=== PATIENT | female | born 1950 | race Caucasian/White ===

== ENCOUNTER 2017-09-16 05:46 | Inpatient (IN) | payer MEDICARE, OTHER, SELFPAY ==
[2017-08-30 15:08] VITALS: BP 136/78; PULSE 67; RESP 17; TEMP 37.3; O2SAT 98; BMI 28.0
[2017-08-30 16:08] LABS: Color, Urine Amber (Yellow); Glucose, Dipstick Normal (Normal); Ketone-Dipstick Negative (Negative); Leukocyte Esterase-Dipstick 500 /ul (Negative); Nitrite-Dipstick Positive (Negative); Occult Blood-Urine Negative /ul (Negative); Protein-Dipstick 15 mg/dl (Negative); Specific Gravity, Urine 1.015 (1.002-1.030); Urine Clarity Cloudy (Clear); Urine Urobilinogen 12 mg/dl (Normal); Urine pH 6.5 (5.0 - 8.0)
[2017-08-30 16:14] LABS: Absolute Lymphocyte Count 1.69 X10^3/ul (0.83-4.51); Absolute Neutrophil Count 3.2 X10^3/uL (2.0-7.7); Basophil# 0.02 X10^3/uL; Basophil% 0.3 % (0-1); Eosinophil# 0.12 X10^3/uL; Eosinophils% 2.1 % (0-5); Hematocrit 39.9 % (37-47); Hemoglobin 13.6 g/dl (12.0-15.0); Lymphocyte # 1.69 X10^3/ul (4.0); Lymphocyte % 29.5 % (19-41); Mean Corp Hgb Conc 34.1 g/gl (32-36); Mean Corpuscular Hgb 30.5 pg (27.0-32.0); Mean Corpuscular Volume 89.5 fL (81-99); Mean Platelet Vol. 11.4 fl (6.2-12.0); Monocyte# 0.73 X10^3/uL; Monocyte% 12.7 % (0-10); Neutrophil # 3.17 X10^3/uL (2.7-7.7); Neutrophil % 55.4 % (47-70); Platelet Count 215 K/mm3 (150-450); RBC Distribution Width CV 13.5 % (11.6-14.6); RBC Distribution Width SD 43.5 fl (35.1-43.9); Red Blood Count 4.46 M/mm3 (4.2-5.4); White Blood Count 5.7 K/mm3 (4.4-11.0)
[2017-08-30 16:16] LABS: POSITIVE COUNT NO; POSITIVE DIFFERENTIAL NO; POSITIVE MORPHOLOGY NO
[2017-08-30 16:18] LABS: Urine Bilirubin Dipstick 6 mg/dL (Negative)
[2017-08-30 16:36] LABS: Anion Gap 6 (5-15); BUN 22 mg/dL (7-18); BUN/Creat Ratio 26.2 RATIO (10-20); Calcium,Total 8.6 mg/dL (8.5-10.1); Chloride 107 mmol/L (98-107); Creatinine, Serum 0.84 mg/dL (0.55-1.02); EST Glomerular Filtration Rate 72 mL/min (>60); Est Glom Filt Rate - Afr Amer 87 mL/min (>60); Estimated Creatinine Clearance 58.48 ml/min; Glucose 93 mg/dL (70-110); Sodium Level 142 mmol/L (136-145); Thyroid Stim Hormone (TSH) 1.69 uIU/mL (0.358-3.74)
--- NOTE | 2017-09-13 14:28 | CASEMGMT ---
MICHAEL MAC called patient to discuss discharge needs after her scheduled surgery. No answer and voicemail left with contact information and requested call back. Pre admission assessment reviewed and plan is to return home. MICHAEL MAC will follow up with patient post operatively to discuss discharge needs.
[2017-09-16] VITALS (15 sets, daily range): BP systolic 103–157; BP diastolic 54–83; PULSE 68–83; RESP 16–18; TEMP 36.2–37.1; O2SAT 92–99; BMI 28.0
[2017-09-16] MEDS: Celecoxib 200 MG Capsule 400 MG PO (06:22)
[2017-09-16] MEDS: Acetaminophen 500 MG Tablet 1000 MG PO ×3 (06:22→22:08)
[2017-09-16] MEDS: oxyCODONE HCl Cr 10 MG Tablet PO (06:23)
[2017-09-16] MEDS: Lactated Ringers 1,000 ML 999 ML IV (06:40)
[2017-09-16] MEDS: Cefazolin 2 GM in 0.9% Normal Saline 100 ML IV (07:16)
--- NOTE | 2017-09-16 08:41 | OP.PCM_ITS ---
Report of Operation Date of Procedure: 09/16/17 Pre-Operative Diagnosis: Severe end-stage osteoarthritis right hip Post-Operative Diagnosis: Severe end-stage osteoarthritis right hip Surgery/Procedure Performed:: Total hip arthroplasty right using an anterolateral approach Description of Surgical Findings:: Eburnation of bone, periarticular osteophytes consistent with severe end-stage osteoarthritis cell attendant: Alta Lynne Type of Anesthesia:: Spinal Anesthesiologist: Jorge Clark Special Medications: txa Specimen's removed: Bone and soft tissue Estimated Blood Loss (mL): 100 Fluids Replaced: See anesthesia report Description of Procedure: Implants: [place] size 52 mm cup with size 4 127? Accolade 2 press-fit stem and -4 neck with appropriate size MDM head Surgical indications: Patient has severe end-stage osteoarthritic changes in the right hip. They have failed conservative measures including activity modification, anti-inflammatories, use of assistive devices. This to the point where the pain affects their ability to enjoy life and complete activities of daily living without discomfort. Patient has elected to undergo the above procedure Procedure description: The patient was greeted in the preoperative area the right hip was marked with surgical marker preoperative antibiotics administered. The patient was then taken to or suite in stable condition. Preoperative tranexamic acid was also utilized. Once the patient was placed in the supine position on the operating room table and once adequate anesthesia was obtained they were then placed in the lateral decubitus position with the surgical hip facing the field. All bony prominences were well-padded. A commercial hip position was utilized. The appropriate extremity was then prepped and draped in usual sterile fashion. Ioban was placed on the skin. Surgical timeout was performed and surgery was commenced. Standard anterolateral approach to the hip was then performed incision was planned and carried out with a #10 blade. Dissection was then carried length of the incision to the IT band which was split proximally and distally. A Charnley retractor was then placed for soft tissue retraction exposing the gluteus medius. The hip was then approached through a transgluteal approach and dislocated through an anterior capsulectomy. Severe eburnation of bone was noted periarticular osteophytes were identified consistent with severe end- stage osteoarthritis. A femoral osteotomy was then created approximately 1 fingerbreadth above the lesser trochanter. This was measured and placed on the back table. Once this was complete acetabular retractors were placed anteriorly and posteriorly and a 4 mm Steinmann pin was placed anterior superior aspect of the acetabulum for soft tissue retention. Labrum was then removed from the acetabulum exposing the entire cup of the acetabulum. Sequential reaming was then commenced and the acetabulum was medialized and sequentially widened in order to accommodate appropriate size cup. The acetabular cup was then impacted into position to the appropriate depth referencing approximately 30? inversion 45? of inclination. Excellent purchase was obtained. No screws were placed in the cup. Metal MDM liner was then placed locking mechanism was engaged Attention was then turned to the femoral preparation. The hip was placed in the 90/90 position and a lateralizing box osteotome was utilized. Femoral starting awl was used followed by sequential broaching to the appropriate size. Excellent purchase was obtained with the stem no stem subsidence and excellent rotational stability was confirmed. A calcar reamer was then used in the trial head neck was placed on the broach. The hip was then located and taken through full range of motion flexion internal and external rotation as well as extension. Excellent stability was noted no impingement was identified of the components and leg lengths appear to be appropriate. The hip was at this point dislocated and the trial femoral components were removed. The final femoral stem was then implanted and impacted to the appropriate depth. Again excellent purchase was obtained no stem subsidence or rotational instability was noted. The hip was once again trialed and confirmation of leg length and stability was performed. Soft tissue tension also appeared to be appropriate. At this point the hip was redislocated and the trunnion was cleaned and dried meticulously in the appropriate size femoral head was placed on the clean dry trunnion using a 12/14 Campos taper. The hip was once again relocated and again taken through full range of motion. I did inject a cocktail of postoperative pain medication in the deep and superficial tissues. Copious irrigation was then performed. Anatomic closure of the gluteus medius and minimus was performed with #1 Vicryl [id number]-li-tlcvx type fashion followed by closure of the IT band with #1 Vicryl 0 Vicryl was utilized in subcutaneous tissue and surgical khris were placed in the skin. A well-padded nonadherent dressing was applied. Patient was taken to PACU in stable condition. No complications were identified. Will follow standard postop protocol for total hip arthroplasty. Patient must use assistive device for ambulation for approximately 6 weeks of the gluteal musculature heals. - Complications none known - Admit VTE Documentation VTE Present on Admission: Yes VTE Mechan Device Prophylaxis: SCD's, Thigh High BASIM Hose VTE Pharm Prophylaxis ordered?: Yes
--- NOTE | 2017-09-16 09:15 | RAD_ITS ---
STUDY: X-RAY - PELVIS AND RIGHT HIP REASON FOR EXAM: Female, 67 years old. Total hip replacement. TECHNIQUE: Radiological exam, hip, unilateral, with pelvis when performed; 2 or 3 views. COMPARISON: None. FINDINGS: The patient is status post right total hip replacement. There is good alignment. Postoperative soft tissue changes. RAD/Hip Min 2 Views (Portable) IMPRESSION: Status post total hip replacement. There is good alignment. Electronically Signed: Bryan Henriquez MD at 11:28 EST Tel [phone], Service support ,
[2017-09-16] MEDS: Lactated Ringers 1,000 ML 125 ML IV (10:45)
[2017-09-16] MEDS: Ondansetron 4 MG/2 ML Vial IV (13:21)
[2017-09-16] MEDS: Ketorolac 15 MG/ML Vial IV ×2 (13:23→20:07)
[2017-09-16] MEDS: oxyCODONE 5 MG Tablet PO ×2 (14:50→23:24)
[2017-09-16] MEDS: Cefazolin 1 GM/50 ML BAG IV ×2 (15:45→23:22)
[2017-09-16] MEDS: Aspirin 325 MG Tablet PO (17:03)
[2017-09-17] MEDS: Acetaminophen 500 MG Tablet 1000 MG PO ×3 (05:21→21:38)
[2017-09-17 05:24] VITALS: BP 116/61; PULSE 77; RESP 16; TEMP 37.4; O2SAT 97
[2017-09-17 06:58] LABS: Hemoglobin 11.7 g/dl (12.0-15.0); Mean Corp Hgb Conc 33.4 g/gl (32-36); Mean Corpuscular Hgb 29.9 pg (27.0-32.0); Mean Corpuscular Volume 89.5 fL (81-99); Mean Platelet Vol. 11.2 fl (6.2-12.0); Platelet Count 170 K/mm3 (150-450); RBC Distribution Width CV 13.3 % (11.6-14.6); RBC Distribution Width SD 42.9 fl (35.1-43.9); Red Blood Count 3.91 M/mm3 (4.2-5.4); White Blood Count 8.1 K/mm3 (4.4-11.0)
[2017-09-17 06:59] LABS: Scan Indicated on CBC? Y/N NO
[2017-09-17 07:16] LABS: Anion Gap 7 (5-15); BUN 15 mg/dL (7-18); BUN/Creat Ratio 17.6 RATIO (10-20); Chloride 106 mmol/L (98-107); Creatinine, Serum 0.85 mg/dL (0.55-1.02); EST Glomerular Filtration Rate 71 mL/min (>60); Est Glom Filt Rate - Afr Amer 85 mL/min (>60); Glucose 104 mg/dL (74-106); Potassium 3.7 mmol/L (3.5-5.1); Sodium Level 141 mmol/L (136-145)
--- NOTE | 2017-09-17 07:51 | PCM.PN.ORT ---
Subjective: Patient sitting at bedside, eating breakfast. Pain is well-managed. Patient has no complaints. Denies chest pain, shortness breath, calf pain, nausea vomiting. Objective: Dressing is clean dry intact. Vital signs labs within normal limits. Patient is afebrile, neurovascular is otherwise intact. Negative signs and symptoms of DVT. - Physical Exam General: Alert, Oriented x3, Cooperative HEENT: PERRLA Oral: Moist Mucosa Neurological: Cranial nerves II-XII grossly intact Psych/Mental Status: Normal Affect, Alert and oriented to time, place, person, mood and affect Vital Signs Temp Pulse Resp BP Pulse Ox 99.4 F H 77 16 116/61 97 09/17/17 05:24 09/17/17 05:24 09/17/17 05:24 09/17/17 05:24 09/17/17 05:24 Oxygen Delivery Method Room Air Weight: 76.5 kg Body Mass Index (BMI) 28.0 Intake and Output for Last 24 Hours 09/15/17 09/16/17 09/17/17 23:59 23:59 23:59 Intake Total 2446 / 2446 Output Total 1575 / 1575 Balance 871 / 871 Laboratory Tests Past 24 Hrs 09/17/17 09/17/17 06:10 06:10 WBC 8.1 RBC 3.91 L Hgb 11.7 L Hct 35.0 L MCV 89.5 MCH 29.9 MCHC 33.4 RDW 13.3 RDW Differential 42.9 Plt Count 170 MPV 11.2 Sodium 141 Potassium 3.7 Chloride 106 Carbon Dioxide 28.0 Anion Gap 7 BUN 15 Creatinine 0.85 Estim Creat Clear Calc 57.00 Est GFR (MDRD) Af Amer 85 Est GFR (MDRD) Non-Af 71 BUN/Creatinine Ratio 17.6 Glucose 104 Calcium 8.0 L Assessment/Plan Status post right total hip Plan 1. Continue all pain medications as prescribed 2. Begin physical therapy, weight-bear as tolerated, with walker 3. Aspirin 325 mg 1 p.o. every 12 hours for 30 days for postop DVT prophylaxis 4. Encourage incentive spirometry 5. Possible discharge home tomorrow
[2017-09-17] MEDS: Aspirin 325 MG Tablet PO ×2 (08:29→16:53)
[2017-09-17 11:13] VITALS: BP 123/60; PULSE 81; RESP 16; TEMP 37.2; O2SAT 99
[2017-09-17] MEDS: oxyCODONE 5 MG Tablet PO ×2 (11:56→22:38)
--- NOTE | 2017-09-17 12:14 | CASEMGMT ---
MICHAEL MAC Face to Face with patient for initial transition planning/care coordination assessment. RN BUBBA introduced self and role at [facility]. Patient sitting in chair, alert and oriented. Patient willing to participate in assessment and is able to answer all questions appropriately. Care providers, pharmacy, and demographics verified. See link attached. Patient wishes to discharge home and is setup with [facility] for outpatient therapy. Patient states that her will be providing transportation. Patient states she has no further needs or concerns at this time. CM to follow for discharge planning needs that may arise. Disposition Plan: Patient to discharge home with outpatient therapy, family support, and follow-up plans in place.
[2017-09-17 18:00] VITALS: BP 92/54; PULSE 78; RESP 18; TEMP 37.2; O2SAT 97
[2017-09-17] MEDS: Senna/Docusate Sodium 1 Tablet 2 TABLET PO (18:33)
[2017-09-17 21:30] VITALS: BP 128/63; PULSE 80; RESP 16; TEMP 37; O2SAT 98
--- NOTE | 2017-09-18 03:30 | NURSING ---
pt asleep, respirations normal. pt had requested earlier in shift that if she was asleep to let her sleep for a large chunk of time. will let her sleep for time being and wake of for vitals and assessment later
[2017-09-18 04:40] VITALS: BP 129/69; PULSE 79; RESP 16; TEMP 36.9; O2SAT 94
[2017-09-18] MEDS: Acetaminophen 500 MG Tablet 1000 MG PO (06:03)
[2017-09-18 06:40] LABS: Hematocrit 34.5 % (37-47); Hemoglobin 11.5 g/dl (12.0-15.0); Mean Corp Hgb Conc 33.3 g/gl (32-36); Mean Corpuscular Volume 90.1 fL (81-99); Mean Platelet Vol. 11.4 fl (6.2-12.0); Platelet Count 155 K/mm3 (150-450); RBC Distribution Width CV 13.5 % (11.6-14.6); RBC Distribution Width SD 43.7 fl (35.1-43.9); Red Blood Count 3.83 M/mm3 (4.2-5.4); White Blood Count 9.5 K/mm3 (4.4-11.0)
[2017-09-18 06:44] LABS: Scan Indicated on CBC? Y/N NO
[2017-09-18] MEDS: Aspirin 325 MG Tablet PO (08:14)
[2017-09-18] MEDS: oxyCODONE 5 MG Tablet PO (08:14)
[2017-09-18 10:00] VITALS: BP 114/62; PULSE 80; RESP 18; TEMP 36.7; O2SAT 93
[2017-09-18] MEDS: Senna/Docusate Sodium 1 Tablet 2 TABLET PO (10:04)
--- NOTE | 2017-09-18 11:44 | PCM.PN.ORT ---
Subjective: Patient sitting at bedside pain well-managed ready for discharge home. No other complaints. Denies chest pain, shortness breath, calf pain, nausea vomiting. Objective: Dressing clean dry intact, vital signs labs within normal limits. Patient is afebrile, neurovascular is intact. Negative signs and symptoms of DVT. - Physical Exam Vital Signs Temp Pulse Resp BP Pulse Ox 98.1 F 80 18 114/62 93 09/18/17 10:00 09/18/17 10:00 09/18/17 10:00 09/18/17 10:00 09/18/17 10:00 Oxygen Delivery Method Room Air Weight: 76.5 kg Body Mass Index (BMI) 28.0 Intake and Output for Last 24 Hours 09/16/17 09/17/17 09/18/17 23:59 23:59 23:59 Intake Total 2446 / 2446 450 / 450 500 / 500 Output Total 1575 / 1575 Balance 871 / 871 450 / 450 500 / 500 Laboratory Tests Past 24 Hrs 09/18/17 06:16 WBC 9.5 RBC 3.83 L Hgb 11.5 L Hct 34.5 L MCV 90.1 MCH 30.0 MCHC 33.3 RDW 13.5 RDW Differential 43.7 Plt Count 155 MPV 11.4 Assessment/Plan Status post right total hip Plan 1. Continue all pain medications as prescribed 2. Continue physical therapy at [facility], weight-bear as tolerated, with walker 3. Aspirin 325 mg 1 p.o. every 12 hours for 30 days for postop DVT prophylaxis 4. Follow-up as scheduled, see pink sheet. 5. Discharge home today
--- NOTE | 2017-09-18 11:51 | PCM.DC.THR ---
Discharge Diet: No Restrictions Discharge Activity: May Not Drive, May Shower, Use Walker May shower in (days): 1 - only if incision is dry and without drainage. Do NOT soak/submerge in tub/pool/hennessy/stream/hot tub. May resume sexual activity in: No Restrictions Ice area for (Minutes): 20 - every hour while awake Weight Bearing Status: Weight bearing as tolerated Lifting Restrictions: 20 pounds Elevate: Operative Extremity Call your doctor if your incision/area has: Continuous Slow Oozing, Sudden Increased Bleeding, Increased Pain/ Swelling, Increased Redness, Foul Smelling Discharge Call your doctor if you observe: Fever of 101 or Higher, Inability to urinate, Inability to have a bowel movement, Shortness of breath, Fainting spells, Chest pain, Increased palpitations (irregular heartbeat), Calf discomfort, Uncontrolled pain Change Dressing in (Days):: 0 - Change daily and as needed. Remove Dressing in (days):: 9 Cleanse incision/area with: Soap & Water Allergies/Adverse Reactions: Allergies No Known Allergies Allergy (Verified 08/30/17 15:04) Medications to take at Discharge Calcium Carbonate/Vitamin D3 [Calcium 600-Vit D3 800 Caplet] 1 each PO DAILY 08/30/17 Etodolac [Lodine] 400 mg PO BID 08/30/17 Levothyroxine [Synthroid] 75 mcg PO DAILY 08/30/17 Multivitamin [Multiple Vitamins] 1 each PO DAILY 08/30/17 Acetaminophen [Tylenol] 1,000 mg PO Q8 tablet 09/18/17 Aspirin 325 mg PO BIDCM tablet 09/18/17 MorphINE [Ms Contin] 15 mg PO BID 10 Days #20 tab 09/18/17 Oxycodone [Oxyir] 5 - 10 mg PO Q4H PRN PRN 7 Days #30 tab 09/18/17 The following prescriptions were given: Oxycodone [Oxyir] 5 - 10 mg PO Q4H PRN PRN 7 Days #30 tab PRN Reason: Mod-Severe Pain (4-1010) MorphINE [Ms Contin] 15 mg PO BID 10 Days #20 tab Primary Care Physician: Mauricio Berry MD [Primary Care Provider] - Please Follow Up With: Wilber Arrington, When: see pink sheet
[2017-09-18 13:00] VITALS: BP 112/58; PULSE 90; RESP 12; TEMP 36.9; O2SAT 95
== END 2017-09-18 13:30 | disposition home or self-care (01) | DRG 470 ==
LOC: MS3 05:47
PROVIDERS: Admitting Provider Orthopaedic Surgery; Family Provider Family Medicine; PCP Family Medicine; Visit Provider Orthopaedic Surgery
PROC: 0SR90JZ Replacement of Right Hip Joint with Synthetic Substitute, Open Approach (ICD-10-PCS; CPT 27130; principal; 2017-09-16 06:50)
DX: M16.11 Unilateral primary osteoarthritis, right hip (principal); E07.9 Disorder of thyroid, unspecified; Z79.891 Long term (current) use of opiate analgesic; Z79.899 Other long term (current) drug therapy; M48.00 Spinal stenosis, site unspecified
CPT/HCPCS: 36415; 73502; 80048; 81002; 84443; 85025; 85027; 87081; 97110; 97116; 97162; 97166; 97530; 97535; J7120; J2405

== ENCOUNTER → 2019-09-15 11:35 | Outpatient (CLI) | payer MEDICARE, OTHER, SELFPAY ==
--- NOTE | 2019-09-15 11:43 | CT_ITS ---
STUDY: CT SCAN HIP LEFT REASON FOR EXAM: Female, 69 years old. [facility] LEFT HIP RADIATION DOSAGE (If Supplied By Facility): CTDIvol = ( 13.06 ) mGy, DLP = ( 1748.90 ) mGycm. Individualized dose optimization techniques were used for this CT.? TECHNIQUE: Multiple axial tomographic images were obtained without intravenous contrast administration. Coronal and sagittal reconstruction were obtained as well. COMPARISON: None. FINDINGS: The patient is status post right total hip replacement. There is good alignment. Moderate to marked degree of joint space narrowing of the left hip joint worse in the superolateral aspect. There is also evidence of degenerative bony spurring along the inferior medial aspect of the left femoral head. Sclerosis and cystic changes in the subchondral aspect of the anterior acetabulum. There is evidence of degenerative changes of the sacroiliac joints bilaterally. Minimal anterior listhesis of L4 on L5 due to facet joint osteoarthritis. This space narrowing and disc degeneration at the L5-S1 level. CT/Extremity Lower without Contra IMPRESSION: Moderate degree of joint space narrowing of the left hip joint with degenerative spur formation along the medial inferior aspect of the right femur. Electronically Signed: Bryan Henriquez, at 12:25 EST , Service support ,
== END ==
PROVIDERS: PCP Family Medicine; Referring Provider Specialist; Visit Provider Specialist
DX: M16.12 Unilateral primary osteoarthritis, left hip (principal)
CPT/HCPCS: 73700

== ENCOUNTER 2019-10-07 05:27 | Observation (INO) | payer MEDICARE, OTHER, SELFPAY ==
[2017-09-16 11:09] VITALS: BMI 28.0
[2019-09-15 11:15] VITALS: BP 137/89; PULSE 62; RESP 16; TEMP 36.9; O2SAT 99; BMI 28.1
--- NOTE | 2019-09-15 11:20 | SDCEKG_ITS ---
Test Reason : Blood Pressure : / mmHG Vent. Rate : 059 BPM Atrial Rate : 059 BPM P-R Int : 188 ms QRS Dur : 076 ms QT Int : 398 ms P-R-T Axes : 060 -13 041 degrees QTc Int : 394 ms Sinus bradycardia Low voltage QRS Septal infarct , age undetermined Abnormal ECG Confirmed by DALLIN JAMES, SAI ([id number]), pictures editor BOOM ROSE ([id number]) on 09/16/2019 9:06:05 AM Referred By: Ronald Snow Confirmed By:SAI ZAMARRIPA MD
[2019-09-15 11:56] LABS: Absolute Lymphocyte Count 1.73 X10^3/uL (0.83-4.51); Absolute Neutrophil Count 2.9 X10^3/uL (2.0-7.7); Basophil# 0.03 X10^3/uL; Basophil% 0.6 % (0-1); Eosinophil# 0.11 X10^3/uL; Hematocrit 42.8 % (37-47); Lymphocyte # 1.73 X10^3/ul (4.0); Lymphocyte % 32.1 % (19-41); Mean Corp Hgb Conc 32.7 g/dL (32-36); Mean Corpuscular Hgb 29.7 pg (27.0-32.0); Mean Corpuscular Volume 90.9 fL (81-99); Mean Platelet Vol. 11.1 fl (6.2-12.0); Monocyte# 0.61 X10^3/uL; Monocyte% 11.3 % (0-10); NRBC Flagged by Analyzer 0 % (0-5); Neutrophil % 53.8 % (47-70); Platelet Count 235 K/mm3 (150-450); RBC Distribution Width CV 12.5 % (11.6-14.6); RBC Distribution Width SD 41.6 fl (35.1-43.9); Red Blood Count 4.71 M/mm3 (4.2-5.4); White Blood Count 5.4 K/mm3 (4.4-11.0)
[2019-09-15 12:35] LABS: Anion Gap 5 (5-15); BUN 22 mg/dL (7-18); BUN/Creat Ratio 28.2 RATIO (10-20); Calcium,Total 9.5 mg/dL (8.5-10.1); Chloride 106 mmol/L (98-107); Creatinine, Serum 0.78 mg/dL (0.55-1.02); EST Glomerular Filtration Rate 78 mL/min (>60); Est Glom Filt Rate - Afr Amer 94 mL/min (>60); Glucose 109 mg/dL (74-106); Potassium 3.8 mmol/L (3.5-5.1); Sodium Level 142 mmol/L (136-145); Thyroid Stim Hormone (TSH) 1.91 uIU/mL (0.358-3.74)
--- NOTE | 2019-09-15 15:58 | PCM.HP.BLA ---
History and Physical History and Physical [facility] Patient Name: Linda Cornejo : 1950 From: MARY FRANKLIN PA-C DATE OF SURGERY: 10/07/2019 SCHEDULED PROCEDURE: left total hip arthroplasty HISTORY OF PRESENT ILLNESS: Preoperative history and physical exam was performed on September 14, 2019. With ongoing pain in her left hip for the past 3-4 months. Patient states her pain is been intermittent, dull, aching. Pain is increased with sitting, laying down. Patient does have start up pain. Patient has difficult time with activities of daily living including getting dressed and putting on socks and shoes. Pancreatitis high as an 8/10 with activity. Patient has had previous right total hip arthroplasty by Dr. Wilber Arrington on September 16, 2017. She is doing very well with regards to her right hip. Patient has tried conservative measures consisting of rest, ice, heat, elevation with minimal relief. She has tried home exercise plan with minimal relief. Patient takes tramadol on an as-needed basis. Prudence medical history pertinent for thyroid disease as well as history of asthma. Currently denies chest pain, shortness of breath, fevers chills, recent infections. After failing conservative measures and discussing treatment options with Dr. Ronald Snow, the patient does wish to proceed with a left total hip arthroplasty. We are obtaining surgical clearance from the primary care physician. REVIEW OF SYSTEMS: ROS: Const: Denies anorexia, anxiety, change in appetite, fever, difficulty sleeping, weight change. CV: Denies chest pain, heart murmur, irregular heartbeat and peripheral vascular disease. Resp: Reports asthma and wheezing, but denies cough, pneumonia, sleep apnea, shortness of breath and tuberculosis. GI: Denies constipation, diarrhea, heartburn, nausea, rectal itching, bloody stools and vomiting. : Denies incontinence. Musculo: Reports pain, but denies leg swelling, trouble walking and weakness. Skin: Denies Raynaud's, history of shingles and tattoo. Neuro: Denies ambulatory dysfunction, dizziness, numbness/tingling and tremor. Psych: Denies anxiety, depression, insomnia, mental illness and stress. Papito/Lymph: Denies anemia, bleeding/bruising tendency and past transfusion. Reviewed, no changes. PAST MEDICAL HISTORY: Advance Care Plan: Other Directive, POA Effective Date: 07/23/2017 Other Directive, LIVING WILL Effective Date: 07/23/2017 PMH: Medical Problems: Asthma, Thyroid Disease Accidents: None Surgical Hx: Tubal Ligation, Tonsillectomy Hip Replacement RT - (09/16/2017) [email or web address] Anesthesia Complications: None Assistive Devices: Glasses Reviewed, no changes. 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 Personal Habits: Cigarette Use: Never.Alcohol: Occasionally.Drug Use: Denies Use.Enjoy Exercising: Daily. Reviewed, no changes. VITALS: Ht: 64.5 Wt: 169lb Wt k.658 BMI: 28.6 BP: 149/84 Pulse: 71 Resp: 12 T: 98.7 T: 37.1C ALLERGIES: No Known Drug Allergy MEDICATIONS: Multivitamins 1 PO qdAY, Calcium 1500 mg 1 qday, Tramadol HCL 50 mg 1-2 by mouth every 6 hours as needed pain, Levothyroxine Sodium 75 mcg 1 tab PO daily, Tylenol Extra Strength 500 mg prn PRE-OP EXAM: General appearance:NORMAL Other: Eyes: Conjunctivae and lids: NORMAL Pupils: ERR Ears, Nose, Mouth, and Throat: NORMAL Other: Inspection of lips, teeth and gums: NORMAL Other: Neck: Examination of neck: no masses noted. Respiratory: Assessment of respiratory effort: NORMAL Other: Auscultation of lungs: clear to auscultation no wheezes, rhonchi or rales. Cardiovascular: Auscultation of heart: regular rate and rhythm, no murmurs, gallops or rubs. Exam of carotid arteries: NORMAL Other: Gastrointestinal: Exam of abdomen: soft, nontender, nondistended bowel sounds present. PHYSICAL EXAMINATION: Patient walks with an antalgic gait. There is tenderness to palpation over the left lateral hip at the greater trochanter. Left hip was clear without erythema. Range of motion: Flexion 70, internal rotation 10, external rotation 20. Patient has increased pain with passive range of motion. There is obligatory external rotation with flexion. Approximately 2 mm shorter on the left when compared to the right hip. Impression intact to light touch. IMAGING STUDIES: Previous x-rays of the left hip reveal joint space narrowing with subchondral sclerosis and osteophyte formation consistent with severe osteoarthritis. IMPRESSION: 1. Severe left hip osteoarthritis 2. Presence of right total hip arthroplasty 3. Thyroid disease 4. History of asthma PLAN: Dr. Ronald Snow did discuss and review with the patient all treatment options including surgical versus nonsurgical options. Patient does wish to proceed with the above-stated procedure. Potential risks, benefits, and complications of the procedure were discussed in detail including but not limited to , infection, nerve and blood vessel damage, persistent pain, numbness, tingling, paresthesias, blood clot, pulmonary embolism, and requirement for possible further surgery. The patient expressed full understanding and has no further questions for the doctor. Patient does agree to proceed with the above-stated procedure and has signed the surgery consent form. This dictation was created using voice recognition software. Phonetic and/or grammatical errors may exist. ___ I have re-examined the patient. There are no clinical changes since date of exam. ___ See progress notes for changes. ___ Dictated on admission Date: Time: Signature:
[2019-10-07] VITALS (11 sets, daily range): BP systolic 118–157; BP diastolic 65–101; PULSE 67–80; RESP 16–18; TEMP 36.2–36.9; O2SAT 95–100; BMI 28.1
[2019-10-07 06:06] LABS: Bedside Glucose 84 mg/dL (70-110)
[2019-10-07] MEDS: Acetaminophen 500 MG Tablet 1000 MG PO ×3 (06:13→21:00)
[2019-10-07] MEDS: Gabapentin 600 MG Tablet PO (06:13)
[2019-10-07] MEDS: Lactated Ringers 1,000 ML 100 ML IV (06:14)
[2019-10-07] MEDS: Lactated Ringers 1,000 ML 999 ML IV (06:35)
--- NOTE | 2019-10-07 07:15 | RAD_ITS ---
STUDY: X-RAY - PELVIS AND LEFT HIP REASON FOR EXAM: Female, 69 years old. TOTAL HIP TECHNIQUE: views of the pelvis and hip. COMPARISON: Previous pelvis x-ray obtained on 09/16/2017 FINDINGS: A single fluoroscopic x-ray of the left hip was performed showing a total left hip prosthesis in place in excellent anatomic position and alignment. I MPRESSION: A total left hip prosthesis is noted in place in excellent anatomic position and alignment. Electronically Signed: Jaziel Goss, at 9:22 EST Tel , Service support , RAD/Hip 1 view with Pelvis
[2019-10-07] MEDS: dexAMETHasone 10 MG/ML Vial IV (07:35)
[2019-10-07] MEDS: Cefazolin 2 GM in 0.9% Normal Saline 100 ML IV (07:35)
--- NOTE | 2019-10-07 08:51 | PCM.OPRPT ---
Report of Operation Date of Procedure: 10/07/19 Pre-Operative Diagnosis: Left hip primary osteoarthritis Post-Operative Diagnosis: Left hip primary osteoarthritis Surgery/Procedure Performed:: Left hip robotically assisted minimally invasive direct anterior total hip replacement Description of Surgical Findings:: Stable hip with equal leg lengths material handling equipment stevedore: Yuni Robles Type of Anesthesia:: Spinal Anesthesiologist: Arnold Isidro Special Medications: 2 g Ancef, 1 g TXA at incision, 1 g TXA closure, 10 mg Decadron, joint cocktail (5 mg Duramorph, 30 mL of 0.5% Ropivicaine, 1000 units of epinephrine, 30 mg of Toradol) Specimen's removed: Bony cuts Estimated Blood Loss (mL): 150 mL Fluids Replaced: 1 L crystalloid Description of Procedure: Components used: 1. Accolade 2 [place] femoral stem size 4 132? 2. [place] trident 2 acetabular shell size 48 mm 3. Christopher X3 polyethylene D3 4. Christopher Biolox delta 36 mm, 0 mm femoral head Brief history operative indications: 69 yo F who failed conservative measures for their hip osteoarthritis. X-rays were consistent with osteoarthritis including joint space narrowing, osteophyte formation and subchondral cysts. Total hip replacement was discussed with the patient with risks and benefits including but not limited to blood loss, DVTs, PEs, neurovascular damage, dislocation, general risks of anesthesia including loss of life. Patient demonstrated an understanding medical clearance is obtained the patient was consented for surgery. Procedure: On the date of procedure the patient's L hip was marked in the preoperative area. Patient was then taken back to the operating room where anesthesia assumed control of the C-spine and airway and administered anesthetic. Patient was transferred to the operating table and placed in the supine position. The hips were placed at the break of the bed and a sacral bump was placed. A checkpoint was placed on the tibial tubercle. The L lower extremity was then prepped out in a sterile fashion using chlorhexidine while the surgeon scrubbed. The PA was vital in the positioning of the patient. Upon reentering the room the L lower extremity was draped in the standard orthopedic fashion and the incision was marked. A timeout was called and everyone agreed upon the side, the site, the procedure be performed, antibody given, and patient's identity. 3 pins were placed in the right iliac crest with a small skin incision and blunt dissection down to the bone. After the skins were placed in a ray was placed for targeting. At this time left hip operative incision was made through skin, subcutaneous tissue, and fat down to fascia. The fascia was then incised and the TFL was retracted laterally. A retractor was placed on the lateral border of the femoral neck. Attention was directed to the inferior portion of the approach and all crossing vessels were identified and appropriately coagulated. A retractor was then placed on the medial portion of the femoral neck. The anterior capsule was then cleared of all soft tissue and then H shaped capsulotomy was made. The retractors were then placed inside the capsule. The checkpoint was placed. The checkpoints were registered. The femoral neck was identified and a cleanup cut was made. At this time a power corkscrew was used to remove the femoral head. Attention was then turned toward the acetabulum where the soft tissues were appropriately retracted and debrided. The acetabulum was registered. The robot was brought into the field sterilely and the acetabulum was reamed to 48 mm. A 48 mm cup was then selected and impacted into place. Acetabular liner was impacted into place and locking mechanism was verified. The position of the acetabular cup was then verified under live fluoroscopy. Attention was then turned to the femur. Soft tissue releases on the medial and lateral femoral neck were appropriately done, the leg was externally rotated and lateralized. A Polanco retractor was placed medially and proximally to the greater trochanter this allowed appropriate visualization and exposure of the femoral canal. Rongeour was then used to remove excess lateral bone. A canal finder and entry broach were used to open the proximal canal. Once we verified we were down the femoral canal we subsequently broached up to a size 4 femur. The appropriate neck was placed in the previously selected head was trialed with a 0 mm neck. Traction was pulled and the hip was reduced with internal rotation. Once it was appropriately reduced and stability was checked. There was minimal shuck, equal leg lengths and appropriate stability with hyperextension and external rotation as well as with 90? flexion and internal rotation. Fluoroscopy was then also used to verify the position of the components and leg lengths using the contralateral side for comparison. The trial components were then dislocated the proximal femur was again exposed and the components were removed from the wound. The final components were verified and opened. The wound was copiously irrigated out with normal saline. The acetabulum was checked for any residual debris. The final components were placed and impacted. Traction and internal rotation were again used to reduce the hip. After adequate reduction the hip remained stable with appropriate leg lengths. The final components were once again checked with live fluoroscopy and were found to be satisfactory. The wound was then copiously irrigated with normal saline once more, and hemostasis was obtained. Closure was then done using #1 Vicryl runner to close the fascia. A 2-0 vicryl interuppted sutures were used to close the subcutaneous skin. A 3-0 MonocRYL And Steri-Strips were used for final skin closure. the pins were removed and pin sites closed. A sterile dressing was placed. Patient was awakened by anesthesia and transferred to the rstrum. Patient was then transferred to the PACU for recovery. Postoperative plan: Patient will get 24 hours postop antibiotics. Patient will get in-house physical therapy and will be weight-bear as tolerated. Patient will follow up in office in 2 weeks for a wound check and x-rays. Grafts/Implants Used: Christopher - Complications No intraoperative complications - Admit VTE Documentation VTE Present on Admission: No VTE Mechan Device Prophylaxis: SCD's, Thigh High BASIM Hose VTE Pharm Prophylaxis ordered?: Yes
--- NOTE | 2019-10-07 09:42 | RAD_ITS ---
STUDY: X-RAY - PELVIS AND LEFT HIP REASON FOR EXAM: Female, 69 years old. post op left hip COMPARISON: Previous. Right hip x-rays including the left hip on 09/16/2017, intraoperative left hip x-ray obtained on 10/07/2019 TECHNIQUE: 3 view FINDINGS: Studies of the pelvis and left hip in 3 projections shows a total left hip prosthesis in place in good position and alignment. There is no evidence of fracture, dislocation, or bony destruction. On the pelvis x-ray a right hip prosthesis is also seen. RAD/Hip Min 2 Views (Portable) IMPRESSION: A total left hip prosthesis noted in place in good position and alignment.. Electronically Signed: Jaziel Goss, at 10:08 EST Tel , Service support ,
[2019-10-07] MEDS: Lactated Ringers 1,000 ML 125 ML IV ×4 (09:51→17:06)
[2019-10-07] MEDS: Scopolamine 1mg/72hr Patch 1 PATCH TD (09:53)
[2019-10-07] MEDS: Morphine 2 MG/ML Syringe IV (11:31)
[2019-10-07] MEDS: traMADol 50 MG Tablet PO ×2 (13:07→23:40)
--- NOTE | 2019-10-07 16:58 | NURSING ---
Call to pharmacy for cefazolin d/t not being up on unit yet.
[2019-10-07] MEDS: Cefazolin 1 GM/50 ML BAG IV ×2 (17:07→23:14)
[2019-10-07] MEDS: Aspirin 81 MG TAB.CHEW PO (17:08)
[2019-10-07] MEDS: Ketorolac 15 MG/ML Vial IV (20:29)
[2019-10-07] MEDS: Senna/Docusate Sodium 1 Tablet 2 TABLET PO (21:01)
[2019-10-08 00:45] VITALS: BP 154/77; PULSE 72; RESP 18; TEMP 36.6; O2SAT 97
[2019-10-08] MEDS: Levothyroxine 75 MCG Tablet PO (05:47)
[2019-10-08] MEDS: Acetaminophen 500 MG Tablet 1000 MG PO (05:49)
[2019-10-08] MEDS: traMADol 50 MG Tablet PO (05:53)
[2019-10-08 05:56] VITALS: BP 142/59; PULSE 66; RESP 18; TEMP 36.9; O2SAT 97
[2019-10-08 06:04] LABS: Hematocrit 34.5 % (37-47); Hemoglobin 11.5 g/dL (12.0-15.0); Mean Corp Hgb Conc 33.3 g/dL (32-36); Mean Corpuscular Hgb 30.1 pg (27.0-32.0); Mean Corpuscular Volume 90.3 fL (81-99); Mean Platelet Vol. 11.1 fl (6.2-12.0); Platelet Count 169 K/mm3 (150-450); RBC Distribution Width SD 42.7 fl (35.1-43.9); Red Blood Count 3.82 M/mm3 (4.2-5.4); White Blood Count 13.1 K/mm3 (4.4-11.0)
[2019-10-08 06:27] LABS: Anion Gap 5 (5-15); BUN 16 mg/dL (7-18); BUN/Creat Ratio 25.4 RATIO (10-20); Calcium,Total 8.6 mg/dL (8.5-10.1); Chloride 109 mmol/L (98-107); Creatinine, Serum 0.63 mg/dL (0.55-1.02); EST Glomerular Filtration Rate 99 mL/min (>60); Est Glom Filt Rate - Afr Amer 120 mL/min (>60); Glucose 100 mg/dL (74-106); Potassium 3.9 mmol/L (3.5-5.1); Sodium Level 142 mmol/L (136-145)
[2019-10-08] MEDS: Aspirin 81 MG TAB.CHEW PO (07:27)
[2019-10-08] MEDS: Famotidine 20 MG Tablet PO (07:28)
[2019-10-08] MEDS: Calcium Carb/Vitamin D 1 TABLET Tablet PO (07:28)
[2019-10-08] MEDS: Multivitamins,Therapeutic Tablet 1 TABLET PO (07:28)
[2019-10-08] MEDS: Senna/Docusate Sodium 1 Tablet 2 TABLET PO (07:29)
[2019-10-08 07:57] VITALS: BP 123/58; PULSE 70; RESP 16; TEMP 36.9; O2SAT 94
--- NOTE | 2019-10-08 08:32 | PCM.PN.ORT ---
Subjective: The patient was sitting in bedside chair upon examination. Patient denies any chest pain, shortness of breath, dizziness, lightheadedness, nausea or vomiting, or calf pain. Pain is controlled on medications. No adverse overnight events. Patient does complain of soreness in the anterior thigh but overall pain is been controlled. Objective: Vital signs stable and afebrile. Patient is able to plantarflex and dorsiflex actively. Sensation is intact to light touch to saphenous, sural, superficial and deep peroneal, and tibial distribution. Dressings is clean dry and intact. Negative Homans bilaterally, negative signs and symptoms of DVT. - Physical Exam Vitals/I&O's: Vital Signs Temp Pulse Resp BP Pulse Ox 98.5 F 70 16 123/58 H 94 10/08/19 07:57 10/08/19 07:57 10/08/19 07:57 10/08/19 07:57 10/08/19 07:57 Oxygen Flow Rate (L/min) 6 Oxygen Delivery Method Room Air Weight: 75.5 kg Body Mass Index (BMI) 28.1 Intake and Output for Last 24 Hours 10/06/19 10/07/19 10/08/19 23:59 23:59 23:59 Intake Total 5288.34 / 5288.34 1283.33 / 1283.33 Output Total 1000 / 1000 500 / 500 Balance 4288.34 / 4288.34 783.33 / 783.33 General: Alert, Oriented x3, Cooperative, No apparent distress Laboratory Results 10/08/19 05:30: WBC 13.1 H, RBC 3.82 L, Hgb 11.5 L, Hct 34.5 L, MCV 90.3, MCH 30.1, MCHC 33.3, RDW Std Deviation 42.7, RDW Coeff of Shanel 13.0, Plt Count 169, MPV 11.1 10/08/19 05:30: Sodium 142, Potassium 3.9, Chloride 109 H, Carbon Dioxide 28.0, Anion Gap 5, BUN 16, Creatinine 0.63, Estim Creat Clear Calc 45.20, Est GFR (MDRD) Af Amer 120, Est GFR (MDRD) Non-Af 99, BUN/Creatinine Ratio 25.4 H, Glucose 100, Calcium 8.6 Current Medications Acetaminophen (Tylenol) 1,000 mg PO Q8 [facility] Last Admin: 10/08/19 05:49 Dose: 1,000 mg Documented by: [facility], [facility]) [facility] Admin: 10/08/19 07:27 Dose: 81 mg Documented by: Calcium/Vitamin D (Os-Ruslan 500mg + D) [facility] Last Admin: 10/08/19 07:28 Dose: 1 tablet Documented by: Enteral Nutritional Formula (Ensure Surgery) 237 ml PO TIDCM [facility] Last Admin: 10/07/19 17:08 Dose: Not Given Documented by: Famotidine (Pepcid) 20 mg PO DAILY [facility] Last Admin: 10/08/19 07:28 Dose: 20 mg Documented by: Ketorolac Tromethamine (Toradol (Bkc)) 15 mg IV Q6H PRN PRN PRN Reason: Pain Score 1-5/10 Stop: 10/09/19 06:39 Last Admin: 10/07/19 20:29 Dose: 15 mg Documented by: Levothyroxine Sodium (Synthroid) 75 mcg PO DAILY@0600 [facility] Last Admin: 10/08/19 05:47 Dose: 75 mcg Documented by: Meloxicam (Mobic) 7.5 mg PO BID [facility] Morphine Sulfate () 2 - 4 mg IV Q2H PRN PRN PRN Reason: Pain Score 4-10/10 Last Admin: 10/07/19 11:31 Dose: 2 mg Documented by: Multivitamins (Multivitamin) 1 tablet PO DAILY@0800 [facility] Last Admin: 10/08/19 07:28 Dose: 1 tablet Documented by: Ondansetron HCl (Zofran) 4 mg IV Q8H PRN PRN PRN Reason: NAUSEA Promethazine HCl (Phenergan) 12.5 mg IM Q6H PRN PRN; Protocol PRN Reason: NAUSEA/VOMITING Senna/Docusate Sodium (Senokot-S, Yvette-Colace) 2 tablet PO BID [facility] Last Admin: 10/08/19 07:29 Dose: 2 tablet Documented by: Sodium Chloride () 10 - 40 ml IV UD PRN PRN Reason: SALINE FLUSH Tramadol HCl (Ultram) 50 - 100 mg PO Q6H PRN PRN PRN Reason: Pain Score 4-10/10 Last Admin: 10/08/19 05:53 Dose: 100 mg Documented by: Medical Necessity - Tobacco Use Smoking Status: Never smoker Tobacco Use: Non-smoker Assessment/Plan 1. S/P left direct anterior total hip arthroplasty POD #1 2. Continue Pain Medications: Tylenol, meloxicam, and tramadol 3. DVT Prophylaxis: Take 81 mg aspirin twice daily for 4 weeks postoperatively for DVT prophylaxis 4. PT/OT: Weightbearing as tolerated 5. H & H: 11.5/34.5, asymptomatic 6. Reactive leukocytosis: Currently 13.1, afebrile. Patient did receive Decadron intraoperatively 7. Encouraged Incentive Spirometry 8. Disposition: Orthopedically stable, plan will be for discharge home this afternoon if patient's pain is well controlled and tolerates physical therapy. Prescriptions will be E scribed to [facility]. Patient will follow-up per postop instructions. Patient does have outpatient physical therapy established. I have reviewed the [place] Automated Rx Reporting System (OARRS) report for this patient for refill pattern and other prescriber involvement as part of the appropriate surveillance for the provision of acute and chronic controlled medications. The report was requested and reviewed on the date of this entry and was considered in the prescribing process.
--- NOTE | 2019-10-08 08:40 | DCINST_ITS ---
Discharge Diet: No Restrictions Discharge Activity: May Not Drive - while taking narcotic pain medications. May shower in (days): 1 - Dressings must be intact to skin, turn dressing away from water Ice area for (Minutes): 20 - Every 1-2 hours while awake Weight Bearing Status: Weight bearing as tolerated Elevate: Operative Extremity Additional Activity Instructions:: Wear elastic stockings for 2 weeks. DO NOT use alcohol with narcotic pain medication. DO NOT make important decisions while taking narcotic medication. If you have problems with taking your medication (rash, itching, nausea, etc.) call the office at once. Call your doctor if your incision/area has: Increased Pain/ Swelling, Increased Redness, Foul Smelling Discharge Call your doctor if you observe: Fever of 101 or Higher Remove Dressing in (days):: 4 - Okay to remove on October 12, 2019 Additional Instructions: Follow orthopedic postop instructions Allergies/Adverse Reactions: Allergies No Known Allergies Allergy (Verified 10/07/19 05:50) Medications to take at Discharge Calcium Carbonate/Vitamin D3 [Calcium 600-Vit D3 800 Caplet] 1 each PO DAILY 08/30/17 Levothyroxine [Synthroid] 75 mcg PO DAILY 08/30/17 Multivitamin [Multiple Vitamins] 1 each PO DAILY 08/30/17 Acetaminophen [Tylenol] 1,000 mg PO Q8 14 Days tablet 10/08/19 Aspirin [Aspirin, Baby] 81 mg PO BIDCM tab 10/08/19 Famotidine [Pepcid] 20 mg PO DAILY #30 tab 10/08/19 Meloxicam [Mobic] 7.5 mg PO BID #60 tab 10/08/19 Senna/Docusate Sodium [Senokot-S] 2 tablet PO BID 3 Days tablet 10/08/19 traMADol [Ultram] 50 - 100 mg PO Q6H PRN PRN 6 Days #42 tablet 10/08/19 The following prescriptions were given: Meloxicam [Mobic] 7.5 mg PO BID #60 tab Transmission Status: Pending to [facility] Famotidine [Pepcid] 20 mg PO DAILY #30 tab Transmission Status: Pending to [facility] traMADol [Ultram] 50 - 100 mg PO Q6H PRN PRN 6 Days #42 tablet PRN Reason: Pain Score 4-10/10 Transmission Status: Sent to [facility] Primary Care Physician: Mauricio Berry MD [Primary Care Provider] - Test Results: Test results from this visit will be discussed in further detail at your follow- up appointment, if applicable. Please Follow Up With: Physical Therapy When: 10/12/19 Please Follow Up With: Jabari Trevizo PA-C When: 10/21/19 @ 10:30 am
[2019-10-08] MEDS: Ensure Surgery 237 ML LIQUID PO (09:04)
[2019-10-08 10:58] VITALS: BP 114/54; PULSE 69; RESP 16; TEMP 36.9; O2SAT 95
--- NOTE | 2019-10-08 11:20 | CASEMGMT ---
RN BUBBA Face to Face with patient for initial transition planning/care coordination assessment. RN CM introduced self and role at [facility]. Patient sitting in chair, alert and oriented. Patient willing to participate in assessment and is able to answer all questions appropriately. Care providers, pharmacy, and demographics verified. Patient wishes to discharge home and is setup with [facility] for outpatient therapy. Patient states she has no further needs or concerns at this time. CM to follow for discharge planning needs that may arise. PCP: Jamal Specialists: None Preferred Pharmacy: [facility] Retail Insurance: [employer] Prescription Benefit: yes Living Will/HPOA: yes, Binh Cornejo LNOK: Living Arrangements: Patient lives with in 1 story home with 2 steps and railing to enter the home. Patient is independent at home. Transportation: DME/HHC: Patient has shower chair, cane, walker, and grab bars. Patient scheduled for outpatient therapy on Saturday at [facility]. Disposition Plan: Patient to discharge home with outpatient therapy, family support, and follow-up plans in place. Ana LIU, RN, CM
== END 2019-10-08 13:45 | disposition home or self-care (01) ==
LOC: ACINP 10-08 09:53 → MS3 10-08 09:53
PROVIDERS: Anesthesiology; Admitting Provider Specialist; Family Provider Family Medicine; PCP Family Medicine; Referring Provider Specialist; Visit Provider Specialist
PROC: 8E0Y0CZ Robotic Assisted Procedure of Lower Extremity, Open Approach (ICD-10-PCS; CPT 27130; principal; 2019-10-07 06:45)
DX: M16.12 Unilateral primary osteoarthritis, left hip (principal); J45.909 Unspecified asthma, uncomplicated; E07.9 Disorder of thyroid, unspecified; Z79.899 Other long term (current) drug therapy; Z96.641 Presence of right artificial hip joint; R00.1 Bradycardia, unspecified; R94.31 Abnormal electrocardiogram [ECG] [EKG]
CPT/HCPCS: 01214; 27130; S2900; 36415; 73501; 73502; 76000; 80048; 82962; 84443; 85025; 85027; 87081; 93005; 96361; 96365; 96366; 96375; 97110; 97162; 97166; 97530; 97535; 99218; 99251; C1776; J7120; G0378; G0379; G0463